=== PATIENT | female | born 1945 | race Caucasian/White ===

== ENCOUNTER 2018-01-02 10:37 | Observation (INO) ==
--- NOTE | 2018-01-02 12:40 | Emergency Department Note ---
Disposition Clinical Impression: Chest pain Qualifiers: Chest pain type: other chest pain Qualified Code(s): R07.89 - Other chest pain Disposition: Admitted As Inpatient Condition: Good Time of Disposition: 12:45 Chest Pain HPI - General Chief Complaint: ED Chest Pain Stated Complaint: Chest pains Time Seen by Provider: 01/02/18 12:36 Vital Signs Reviewed: Yes - History of Present Illness HPI Narrative: 72yo female presents from home for evaluation of chest pain. Onset 3 days ago. Constant. Described as a shifting dullness. Associated with dyspnea with exertion. No nausea, vomiting, weakness, back pain. She was seen and evaluated by her PCP yesterday; unremarkable EKG and cardiac enzymes per patient. She has a history of chronic sinusitus PMH: HTN. No hx HLD, COPD, CAD. Never smoked cigarettes. No family history of ACS. ROS: Pos: as above Neg: fever, chills, cough, nausea, vomiting, palpitations, back pain, numbness, weakness, tingling, headache Severity scale (1-10): 8 - Related Data Home Medications Medication Instructions Recorded Confirmed Fluticasone Propionate Nasal 1 spr NS DAILY PRN 01/02/18 01/02/18 [Flonase] Guaifenesin [Mucinex] 600 mg PO DAILY PRN 01/02/18 01/02/18 Loratadine [Allergy Relief] 10 mg PO DAILY 01/02/18 01/02/18 Multivitamin [One Daily Essential] 1 tab PO DAILY 01/02/18 01/02/18 Omeprazole [PriLOSEC] 20 mg PO DAILY 01/02/18 01/02/18 Potassium Chloride [Klor-Con 10] 20 meq PO DAILY 01/02/18 01/02/18 Quinapril HCl [Accupril] 20 mg PO DAILY 01/02/18 01/02/18 Verapamil HCl [Verapamil ER] 240 mg PO DAILY 01/02/18 01/02/18 hydroCHLOROthiazide 25 mg PO DAILY 01/02/18 01/02/18 [Hydrochlorothiazide] Allergies Allergy/AdvReac Type Severity Reaction Status Date / Time iron [From Venofer] Allergy See Verified 01/02/18 13:27 Comments All systems ED: reviewed and negative except as stated. Review of Systems: As Per HPI Physical Exam Vital Signs Reviewed General: Patient is alert, oriented, and in no acute distress. Appears younger than stated age. Head: atraumatic, normocephalic Eye: normal appearance, PERRL, EOMI, no scleral icterus, no conjunctival injection ENT: mucous membranes moist, normal external ear exam. TMs bilaterally pearly white with no injection, buldge, retraction. Turbinates bilaterally erythematous and swollen. Neck: normal inspection, trachea midline, full ROM Chest: normal inspection, symmetric chest rise Respiratory: Good respiratory effort. Bilateral breath sounds are clear without wheezing, crackles, or rhonchi. Cardiovascular: Regular rate and rhythm. No clicks, rubs, gallops, or murmors. Normal heart sounds. Abdomen: Bowel sounds present normoactive x-4 quadrants. Abdomen is soft, nondistended, and nontender. No guarding or rebound. No organomegaly noted. Musculoskeletal: Spontaneously moving all extremities. Skin: warm, dry, intact. Neuro: Alert and oriented x4. Sensation light touch intact. Psych: Patient's affect is appropriate for situation. Course Course Narrative: EKG dated 02 Jan 2018 at 12:36 interpreted as sinus rhythm with rate of 80. NJ 195. QTc 425. Normal axis. Non specific STT changes. No previous EKG for comparison. Chest pain workup. Anticipate admission. Serum hematology unremarkable. Serum chemistry unremarkable; specifically normal troponin. Patient is agreeable for admission for continued evaluation and management. Discussed the patient with the admitting hospitalist who agrees to accept the patient for continued evaluation of chest pain to rule out ACS. Chest X-Ray 01/02/18 11:03 IMPRESSION: 1. Minimal left basilar atelectasis. 2. Moderate to large hiatal hernia. D/ / Von Aiken MD / Von Aiken MD Interpreting Provider: Von Aiken MD Vital Signs Temperature 97.9 F 01/02/18 11:00 Pulse Rate 83 01/02/18 11:00 Respiratory Rate 18 01/02/18 11:00 Blood Pressure 127/82 01/02/18 11:00 O2 Sat by Pulse Oximetry 95 01/02/18 11:00 Temperature 98.5 F 01/02/18 18:23 Pulse Rate 67 01/02/18 18:23 Respiratory Rate 16 01/02/18 18:23 Blood Pressure 114/70 01/02/18 18:23 O2 Sat by Pulse Oximetry 97 01/02/18 18:23 Oxygen Delivery Oxygen Delivery Nasal Cannula Chest Pain - Lab Data Result diagrams: 01/02/18 12:57 01/02/18 12:57 Lab Results 01/02/18 01/02/18 Range/Units 12:57 12:57 WBC 12.1 H (4.3-11.1) K/mcL RBC 4.31 (3.82-4.97) M/mcL Hgb 12.1 (11.5-15.4) g/dL Hct 37.1 (35.3-44.9) % MCV 86.1 (83.0-100.0) fL MCH 28.1 (28.0-33.3) pg MCHC 32.6 (31.6-35.5) g/dL RDW 15.1 H (11.5-14.5) % Plt Count 347 (140-400) K/mcL MPV 9.7 (9.4-12.4) fL Immature Gran % 0.4 (0-4) % Seg Neutrophils % 79.8 % Lymphocytes % 12.1 % Monocytes % 6.5 % Eosinophils % 0.6 % Basophils % 0.6 % Neutrophils # 9.7 H (1.6-8.9) K/mcL Lymphocytes # 1.5 (0.6-4.6) K/mcL Monocytes # 0.8 (0.0-1.3) K/mcL Eosinophils # 0.1 (0.0-0.6) K/mcL Basophils # 0.1 (0.0-0.2) K/mcL Sodium 134 L (136-145) mEq/L Potassium 3.4 L (3.5-5.1) mEq/L Chloride 97 L (98-107) mEq/L Carbon Dioxide 27 (23-29) mEq/L BUN 15 (8-23) mg/dL Creatinine 0.78 (0.60-1.20) mg/dL Est GFR ( Amer) > 60 (> 60) Est GFR (Non-Af Amer) > 60 (> 60) BUN/Creatinine Ratio 19 (6-26) Glucose 129 H (70-105) mg/dL Calculated Osmolality 281 (280-300) Calcium 9.6 (8.6-10.3) mg/dL Troponin I < 0.03 (< 0.04) ng/mL Heart Score - Score History: Slightly Suspicious EKG: Non Specific repolarisation Disturbance Age: Greater than 65 Risk Factors: 1-2 risk factors Troponin: Less than normal limit HEART Score Total: 4 Attestation Statement - Attestation Attestation: I examined this patient and my medical decision-making was reviewed with the Resident Physician. I agree with the documented findings, disposition and treatment plan as described except to the extent set forth below. Findings consistent with chest pain. Symptoms of been ongoing and atypical in nature. Patient has risk factors. We would proceed with admission for ACS rule out and further management possibly cardiac consultation.
[2018-01-02 13:12] LABS: Basophils # 0.1 K/mcL (0.0-0.2); Basophils % 0.6 %; Eosinophils # 0.1 K/mcL (0.0-0.6); Eosinophils % 0.6 %; Hematocrit 37.1 % (35.3-44.9); Hemoglobin 12.1 g/dL (11.5-15.4); Immature Granulocytes % 0.4 % (0-4); Lymphocytes # 1.5 K/mcL (0.6-4.6); Lymphocytes % 12.1 %; Mean Corpuscular HGB Conc 32.6 g/dL (31.6-35.5); Mean Corpuscular Hemoglobin 28.1 pg (28.0-33.3); Mean Corpuscular Volume 86.1 fL (83.0-100.0); Mean Platelet Volume 9.7 fL (9.4-12.4); Monocytes # 0.8 K/mcL (0.0-1.3); Monocytes % 6.5 %; Neutrophils # 9.7 K/mcL (1.6-8.9); Platelet Count 347 K/mcL (140-400); Red Blood Count 4.31 M/mcL (3.82-4.97); Red Cell Distribution Width 15.1 % (11.5-14.5); Segmented Neutrophils % 79.8 %
[2018-01-02] MEDS ORDERED: *HR* HYDROcodone/Acet 5/325 mg TABLET PO PRN (13:32)
[2018-01-02] MEDS ORDERED: Naloxone 0.4 MG/ML INJ IVP PRN (13:32)
[2018-01-02] MEDS ORDERED: Acetaminophen 325 MG TABLET PO PRN (13:32)
[2018-01-02] MEDS ORDERED: Nitroglycerin 0.4 MG TAB.SUBL SL PRN (13:35)
[2018-01-02] MEDS ORDERED: Fluticasone Propionate Nasal 50 MCG/SPRAY BOTTLE NS PRN (13:36)
[2018-01-02 13:37] LABS: Troponin I < 0.03 ng/mL (< 0.04)
[2018-01-02 13:42] LABS: BUN/Creatinine Ratio 19 (6-26); Blood Urea Nitrogen 15 mg/dL (8-23); Calcium 9.6 mg/dL (8.6-10.3); Carbon Dioxide 27 mEq/L (23-29); Chloride 97 mEq/L (98-107); Glucose 129 mg/dL (70-105); Osmolality,Calculated 281 (280-300); Potassium 3.4 mEq/L (3.5-5.1); Sodium 134 mEq/L (136-145); eGFR For Non-African Americans > 60 (> 60)
--- NOTE | 2018-01-02 13:46 | Internal Med History&Physical ---
<OlgaJonathan - Last Filed: 01/02/18 14:04> Date of Encounter: 01/02/18 Time of Encounter: 12:30 Internal Medicine - H&P: HPI Chief complaint: CP Admitted From: Emergency Dept Plans for Post Hospital Care: Home History of present illness: Ms. Silva is a 72 year old female w/PMH of HTN, GERD, and hiatal hernia presents from the ED w/CC of CP that began Sunday at 5 a.m. when the pt. was getting up. Pt. reports pain in the right neck and right arm. States pain worsened by Sunday as centralized chest pressure in chest that was constant w/ radiation to both sides of the neck, right arm, and back accompanied by SOB. Alleviating factors: rest and aspirin. Pt. denies cardiac hx or previous cardiac w/u. Pt. denies recent illness, fever, chills, nausea, vomiting, changes in vision, headache, unusual bleeding, abdominal pain, diarrhea, constipation, dizziness, lightheadedness, numbness, tingling, pre-syncope, or syncope. Past Med Surg Social Fam HX - Past Medical History Source: patient, old records reviewed, obtained from family Medical history: GERD, hypertension, other (Hiatal hernia) - Social History Smoking Status: Never smoker Alcohol use: rarely Drug use: none Current living situation: Home, With Family Activity Level: Independent ambulation Recent Out of Country Travel Within the Last 8 Weeks: No Exposure or Possible Exposure to Illness During Travel: No - Family History Father Race: Family Member Ethnicity: Non- Living Status: Age at : 50 Cause of : Lung cancer Hx Family Cancer: Yes (Lung) Mother Race: Family Member Ethnicity: Non- Living Status: Age at : 85 Cause of : Dementia Hx Family Cardiac Disorders: Yes (HTN) Hx Family Endocrine Disorder: Yes (DM) Hx Family Neurologic Disorders: Yes (Dementia) Brother Race: Family Member Ethnicity: Non- Living Status: Age at : 64 Cause of : COPD/Emphysema Hx Family Respiratory Disorders: Yes (COPD/Emphysema) Internal Medicine - H&P: Meds Fluticasone Propionate Nasal [Flonase] 1 spr NS DAILY PRN 01/02/18 [History] Guaifenesin [Mucinex] 600 mg PO DAILY PRN 01/02/18 [History] Loratadine [Allergy Relief] 10 mg PO DAILY 01/02/18 [History] Multivitamin [One Daily Essential] 1 tab PO DAILY 01/02/18 [History] Omeprazole [PriLOSEC] 20 mg PO DAILY 01/02/18 [History] Potassium Chloride [Klor-Con 10] 20 meq PO DAILY 01/02/18 [History] Quinapril HCl [Accupril] 20 mg PO DAILY 01/02/18 [History] Verapamil HCl [Verapamil ER] 240 mg PO DAILY 01/02/18 [History] hydroCHLOROthiazide [Hydrochlorothiazide] 25 mg PO DAILY 01/02/18 [History] 3 Allergy/AdvReac Type Severity Reaction Status Date / Time iron [From Venofer] Allergy See Verified 01/02/18 13:27 Comments All Systems PM: A 10-system review of systems was performed and is negative for pertinent findings except as documented above in the HPI. - Constitutional Constitutional: no chills, no fever(s), no night sweats - EENT Eyes: no change in vision, no discharge, no pain, no photophobia Ears: no ear discharge, no ear pain, no tinnitus Nose, mouth and throat: no dysphagia, no nasal discharge, no neck pain, no sore throat - Breasts Breasts: as per HPI - Cardiovascular Cardiovascular ROS IM: as per HPI, chest pain, dyspnea, dyspnea on exertion, no diaphoresis, no lightheadedness, no palpitations, no syncope - Respiratory Respiratory: as per HPI, dyspnea, dyspnea on exertion - Gastrointestinal Gastrointestinal: no abdominal pain, no diarrhea, no hematemesis, no hematochezia, no melena, no nausea, no vomiting - Genitourinary Genitourinary: no change in urinary stream, no dysuria, no flank pain, no hematuria Menstruation: as per HPI - Musculoskeletal Musculoskeletal ROS IM: as per HPI - Integumentary Integumentary IM: no rash, no unusual bruising - Neurological Neurological ROS: no confusion, no convulsions, no focal weakness, no numbness, no tingling, no tremor(s) - Psychiatric Psychiatric: as per HPI - Endocrine Endocrine IM: as per HPI - Hematologic/Lymphatic Hematologic/Lymphatic: no easy bruising - Allergic/Immunologic Allergic/Immunologic: as per HPI - Constitutional Vitals: Temp Pulse Resp BP Pulse Ox 98.1 F 69 16 118/59 98 01/02/18 12:27 01/02/18 13:08 01/02/18 13:08 01/02/18 13:08 01/02/18 13:08 General appearance: Present: cooperative, mild distress (CP), A&O X 3, pleasant , obese, answers questions appropriately Exam: Pt. examined at bedside in ED. Pt. states she continues to have chest pressure in centralized chest (rated 8/10) accompanied by SOB. Denies previous hx. Radiation to bilateral neck, right arm, and back. Denies N/V/diaphoresis. Denies previous AL, cardiac hx, or recent cardiac w/u. States she takes aspirin daily. Denies any other sx at this time. On exam, HR RRR, RR 16, pt. resting comfortably. - Head Head exam: Present: atraumatic, normocephalic - Eye Eye exam: Present: PERRL, conjuntiva pink, sclera anicteric Pupils: Present: PERRL - ENT ENT exam: Present: normal exam - Neck Neck exam general surgery: Present: normal inspection, supple, trachea midline. Absent: lymphadenopathy - Respiratory Respiratory exam: Present: CTAB. Absent: accessory muscle use, rales, rhonchi, wheezes - Cardiovascular Cardiovascular exam: Present: RRR, +S1, +S2. Absent: diastolic murmur, gallop, rubs, systolic murmur - GI/Abdominal GI/Abdominal exam: Present: normal bowel sounds, soft, no peritoneal signs. Absent: distended, tenderness - Rectal Rectal exam: Present: deferred - Additional comments: exam deferred. - Extremities Exam Extremities exam: Present: warm, radial pulses palpable and symmetrical. Absent : calf tenderness, cyanotic, pedal edema - Back Exam Back exam: Present: normal inspection - Neurological Exam Neurological exam: Present: alert, CN II-XII intact, oriented X3, no focal deficits. Absent: pronater drift, facial droop, speech deficit - Psychiatric Psychiatric exam: Present: normal affect, normal mood - Skin Skin exam: Present: dry, intact Internal Med - H&P Results - Labs CBC & Chem 7: 01/02/18 12:57 01/02/18 12:57 Labs: Short CBC 01/02/18 Range/Units 12:57 WBC 12.1 H (4.3-11.1) K/mcL Hgb 12.1 (11.5-15.4) g/dL Hct 37.1 (35.3-44.9) % Plt Count 347 (140-400) K/mcL Neutrophils # 9.7 H (1.6-8.9) K/mcL Cardiac Enzymes 01/02/18 Range/Units 12:57 Troponin I < 0.03 (< 0.04) ng/mL - Impressions ITS Impressions Chest X-Ray 01/02/18 11:03 IMPRESSION: 1. Minimal left basilar atelectasis. 2. Moderate to large hiatal hernia. D/ / Von Aiken MD / Von Aiken MD Interpreting Provider: Von Aiken MD - Diagnostic Studies Chest x-ray Additional comments: Impressions Chest X-Ray 01/02/18 11:03 IMPRESSION: 1. Minimal left basilar atelectasis. 2. Moderate to large hiatal hernia. D/ / Von Aiken MD / Von Aiken MD Interpreting Provider: Von Aiken MD - Assessment and plan (1) Chest pain Current Visit: Yes Status: Acute Assessment and plan: Acute CP that began Sunday at 5 a.m. when the pt. was getting up. Pt. reports pain in the right neck and right arm. States pain worsened by Sunday as centralized chest pressure in chest that was constant w/radiation to both sides of the neck, right arm, and back accompanied by SOB. Alleviating factors: rest and aspirin. Pt. denies cardiac hx or previous cardiac w/u. Echocardiogram ordered. Initial troponin <0.03. Will trend. Cardiac diet. NPO @ midnight for a.m. exercise stress test if troponins remain WNL. Aspirin. 80 mg Lipitor ONCE. SL Nitro PRN. Consider Cardiology consult if pts. Echocardiogram, troponins, and /or stress test results abnormal. Pt. discussed w/Dr. Berry who agrees w/ plan of care. Pt. is moderate risk for further morbidity and cardiac event based on new onset of CP that has worsened since Sunday, radiation of CP, hx; and risk factors of obesity and HTN. Observation. Qualifiers: Chest pain type: other chest pain Qualified Code(s): R07.89 - Other chest pain; R07.8 - Other chest pain (2) SOB (shortness of breath) Current Visit: Yes Status: Acute Assessment and plan: Acute SOB accompanying CP sx. Pt. denies home O2 use. Reports seasonal allergies. Will continue pts. Flonase, Mucinex, and Loratadine. Supplemental O2 w/titration and SpO2 monitoring PRN. (3) HTN (hypertension) Current Visit: Yes Status: Chronic Assessment and plan: Hx of chronic HTN. Monitor pt. and VS. Continue pts. Hydrochlorothiazide, Accupril, and Verapamil. Qualifiers: Hypertension type: essential hypertension Qualified Code(s): I10 - Essential (primary) hypertension (4) GERD (gastroesophageal reflux disease) Current Visit: Yes Status: Chronic Assessment and plan: Hx of chronic GERD. IVP Protonix 40 mg ONCE. Continue pts. PO Prilosec tomorrow. Qualifiers: Esophagitis presence: esophagitis presence not specified Qualified Code(s) : K21.9 - Gastro-esophageal reflux disease without esophagitis (5) DVT prophylaxis Current Visit: Yes Status: Acute Assessment and plan: Heparin 5,000 units SQ Q8HR for DVT prophylaxis. Monitor pt. for signs of bleeding. - Time Spent With Patient Total time spent is greater than 50% in coordination of care (as documented) at patient's floor/unit and/or counseling patient: Greater than 35 minutes <Devin Berry - Last Filed: 01/02/18 15:02> Date of Encounter: 01/02/18 Time of Encounter: 13:30 - Constitutional Vitals: Temp Pulse Resp BP Pulse Ox 98.1 F 67 16 137/78 96 01/02/18 12:27 01/02/18 14:21 01/02/18 14:21 01/02/18 14:21 01/02/18 14:21 General appearance: Present: cooperative, A&O X 3, pleasant, answers questions appropriately - Eye Eye exam: Present: EOMI, PERRL - ENT ENT exam: Present: normal exam - Neck Neck exam general surgery: Present: full ROM, supple. Absent: tenderness, nuchal rigidity, thyromegaly - Respiratory Respiratory exam: Present: CTAB. Absent: rales, rhonchi - Cardiovascular Cardiovascular exam: Present: RRR, +S1, +S2. Absent: diastolic murmur, systolic murmur - Extremities Exam Extremities exam: Present: warm, radial pulses palpable and symmetrical. Absent : calf tenderness, cyanotic, tenderness - Back Exam Back exam: Absent: CVA tenderness (L), CVA tenderness (R) Internal Med - H&P Results - Labs CBC & Chem 7: 01/02/18 12:57 01/02/18 12:57 Labs: Short CBC 01/02/18 Range/Units 12:57 WBC 12.1 H (4.3-11.1) K/mcL Hgb 12.1 (11.5-15.4) g/dL Hct 37.1 (35.3-44.9) % Plt Count 347 (140-400) K/mcL Neutrophils # 9.7 H (1.6-8.9) K/mcL BMP 01/02/18 12:57 Sodium 134 L Potassium 3.4 L Chloride 97 L Carbon Dioxide 27 BUN 15 Creatinine 0.78 Glucose 129 H Calcium 9.6 Cardiac Enzymes 01/02/18 Range/Units 12:57 Troponin I < 0.03 (< 0.04) ng/mL - Impressions ITS Impressions Chest X-Ray 01/02/18 11:03 IMPRESSION: 1. Minimal left basilar atelectasis. 2. Moderate to large hiatal hernia. D/ / Von Aiken MD / Von Aiken MD Interpreting Provider: Von Aiken MD - Assessment and plan (1) Chest pain Current Visit: Yes Status: Acute Qualifiers: Chest pain type: other chest pain Qualified Code(s): R07.89 - Other chest pain; R07.8 - Other chest pain (2) SOB (shortness of breath) Current Visit: Yes Status: Acute (3) HTN (hypertension) Current Visit: Yes Status: Chronic Qualifiers: Hypertension type: essential hypertension Qualified Code(s): I10 - Essential (primary) hypertension (4) GERD (gastroesophageal reflux disease) Current Visit: Yes Status: Chronic Qualifiers: Esophagitis presence: esophagitis presence not specified Qualified Code(s) : K21.9 - Gastro-esophageal reflux disease without esophagitis (5) DVT prophylaxis Current Visit: Yes Status: Acute - Time Spent With Patient Total time spent is greater than 50% in coordination of care (as documented) at patient's floor/unit and/or counseling patient: - Attending Attestation I discussed the patient LAC VIEUX, past medical history, review of systems, lab data , and exam findings with Karthik Espinoza CNP. I then saw and examined patient independently. Patient presents with chest pain somewhat concerning for angina despite no prior history of cardiac disease. Nonetheless, she warrants evaluation and testing as detailed above. I reviewed the x-ray and EKG and lab findings. Other than my comments above and noted physical exam findings, I agree with Karthik's assessment and plan.
[2018-01-02] MEDS ORDERED: Ondansetron 4 MG/2 ML VIAL IVP PRN (13:51)
[2018-01-02] MEDS ORDERED: Pantoprazole 40 MG VIAL IVP ONE (13:53)
[2018-01-02] MEDS: *HR* Heparin 5,000 UNIT/ML VIAL SQ SCH ×2 (16:15→22:30)
[2018-01-03 04:02] LABS: Basophils # 0.1 K/mcL (0.0-0.2); Basophils % 0.7 %; Eosinophils # 0.1 K/mcL (0.0-0.6); Eosinophils % 1.1 %; Hematocrit 33.9 % (35.3-44.9); Hemoglobin 11.2 g/dL (11.5-15.4); Immature Granulocytes % 0.4 % (0-4); Lymphocytes # 2.3 K/mcL (0.6-4.6); Lymphocytes % 24.6 %; Mean Corpuscular Hemoglobin 28.9 pg (28.0-33.3); Mean Corpuscular Volume 87.6 fL (83.0-100.0); Mean Platelet Volume 10.1 fL (9.4-12.4); Monocytes # 0.7 K/mcL (0.0-1.3); Monocytes % 7.7 %; Platelet Count 308 K/mcL (140-400); Red Blood Count 3.87 M/mcL (3.82-4.97); Red Cell Distribution Width 15.2 % (11.5-14.5); Segmented Neutrophils % 65.5 %
[2018-01-03 04:18] LABS: Alanine Aminotransferase 12 Units/L (7-52); Albumin 3.7 g/dL (3.5-5.7); Albumin/Globulin Ratio 1.2 (1.1-2.2); Alkaline Phosphatase 115 Units/L (34-104); Aspartate Amino Transferase 17 Units/L (13-39); BUN/Creatinine Ratio 19 (6-26); Bilirubin,Total 0.6 mg/dL (0.3-1.0); Blood Urea Nitrogen 12 mg/dL (8-23); Calcium 9.2 mg/dL (8.6-10.3); Carbon Dioxide 29 mEq/L (23-29); Chloride 97 mEq/L (98-107); Chol/HDL Ratio 2.4 (0-4.9); Cholesterol 133 mg/dL (< 200); Globulin 3.1 g/dL (2.4-3.5); Glucose 126 mg/dL (70-105); HDL Cholesterol 56 mg/dL (40-59); LDL Cholesterol,Calculated 54 mg/dL (0-99); Magnesium 1.9 mg/dL (1.6-2.6); Osmolality,Calculated 277 (280-300); Potassium 3.8 mEq/L (3.5-5.1); Sodium 133 mEq/L (136-145); Total Protein 6.8 g/dL (6.4-8.9); Triglycerides 113 mg/dL (< 150); eGFR For Non-African Americans > 60 (> 60)
[2018-01-03] MEDS: *HR* Heparin 5,000 UNIT/ML VIAL SQ SCH ×2 (05:57→12:49)
[2018-01-03 07:37] LABS: Estimated Average Glucose 126 mg/dl
[2018-01-03] MEDS ORDERED: Regadenoson 0.4 MG/5 ML SYRINGE IVP ONE (07:53)
[2018-01-03] MEDS ORDERED: Aspirin Enteric Coated 81 MG Tablet PO SCH (09:00)
[2018-01-03] MEDS ORDERED: hydroCHLOROthiazide 25 MG TABLET PO SCH (09:00)
[2018-01-03] MEDS ORDERED: Multivit/Ca/Min/Fe/FA 1 TAB TABLET PO SCH (09:00)
[2018-01-03] MEDS ORDERED: Loratadine 10 MG TABLET PO SCH (09:00)
[2018-01-03] MEDS ORDERED: Lisinopril 20 MG TABLET PO SCH (09:00)
[2018-01-03] MEDS ORDERED: Verapamil ER (24 HR) 240 MG TABLET.ER PO SCH (09:00)
[2018-01-03 15:35] VITALS: BP 102/63
--- NOTE | 2018-01-03 15:38 | Discharge Summary ---
- NOTES TO OUTPATIENT PROVIDER Notes to Outpatient Provider: She will follow up with primary care provider Orders not resulted at time of discharge: Pending orders 01/03/18 07:48 NM jeremie perf SPECT multi [NM] Routine Date of Encounter: 01/03/18 Time of Encounter: 11:00 - Discharge Diagnosis (1) Chest pain Priority: Primary Status: Acute Qualifiers: Chest pain type: other chest pain Qualified Code(s): R07.89 - Other chest pain; R07.8 - Other chest pain (2) SOB (shortness of breath) Priority: Secondary Status: Acute (3) HTN (hypertension) Priority: Secondary Status: Chronic Qualifiers: Hypertension type: essential hypertension Qualified Code(s): I10 - Essential (primary) hypertension (4) GERD (gastroesophageal reflux disease) Priority: Secondary Status: Chronic Qualifiers: Esophagitis presence: esophagitis presence not specified Qualified Code(s) : K21.9 - Gastro-esophageal reflux disease without esophagitis Hospital course: Patient is a 72-year-old female with past medical history significant for hypertension and GERD who presented due to chest pain. During patients hospital stay her cardiac biomarkers were negative and nuclear medicine stress was done which was negative for ischemia and without ischemia or infarct on perfusion imaging. Echocardiogram showed LVEF of 60-65% with mild left ventricular diastolic dysfunction and mild aortic sclerosis. Patient will follow-up with primary care provider as an outpatient. - Time Spent with Patient Total time spent providing and/or coordinating discharge services: Greater than 30 minutes - Discharge Medications Home Medications: Fluticasone Propionate Nasal [Flonase] 1 spr NS DAILY PRN 01/02/18 [History] Guaifenesin [Mucinex] 600 mg PO DAILY PRN 01/02/18 [History] Loratadine [Allergy Relief] 10 mg PO DAILY 01/02/18 [History] Multivitamin [One Daily Essential] 1 tab PO DAILY 01/02/18 [History] Omeprazole [PriLOSEC] 20 mg PO DAILY 01/02/18 [History] Potassium Chloride [Klor-Con 10] 20 meq PO DAILY 01/02/18 [History] Quinapril HCl [Accupril] 20 mg PO DAILY 01/02/18 [History] Verapamil HCl [Verapamil ER] 240 mg PO DAILY 01/02/18 [History] hydroCHLOROthiazide [Hydrochlorothiazide] 25 mg PO DAILY 01/02/18 [History] Allergies/Adverse Reactions: 3 Allergy/AdvReac Type Severity Reaction Status Date / Time iron [From Venofer] Allergy See Verified 01/02/18 13:27 Comments Date of admission: 01/02/18 15:15 Primary care physician: Murtaza Johnson MD - Constitutional Vitals: Temp Pulse Resp BP Pulse Ox 99.1 F 83 17 102/63 93 01/03/18 15:31 01/03/18 15:31 01/03/18 15:31 01/03/18 15:31 01/03/18 15:31 General appearance: Present: cooperative, A&O X 3, pleasant, answers questions appropriately Exam: See below - Cardiovascular Cardiovascular exam: Present: RRR, +S1, +S2. Absent: diastolic murmur, gallop, rubs, systolic murmur - Patient Status Disposition: Home, Self-Care Condition: Good - Discharge Instructions Instructions: Chest Pain (DC) Follow Up With: Katherine Johnson SEAWEED HARVESTER [Advanced Practice Nurse] - 01/09/18 1:00 pm Additional Instructions: Follow-up appointments: If there is not an appointment listed below, please call your physician and schedule a follow-up appointment. If you have congestive heart failure and your symptoms return, make an appointment with your physician. Medication List: Carry an up to date list of medications you are taking at all time. We have given you an updated medication list including any new medications that you have been prescribed. Please provide that list to your primary provider Symptoms: If your condition changes or you experience any of the following symptoms, notify your physician immediately: Unusual or worsening pain, fever, persistent nausea and vomiting, bleeding, increase in swelling (especially in your legs), sudden weight gain, extreme dizziness, chest pain, increased drainage or redness from a wound or incision. Go to the emergency department if you experience a problem with breathing. Weights: If you have a history of swelling or shortness of breath, weigh yourself daily and notify your physician if you have a weight gain of two or more pounds in one day or 5 or more pounds in a week. If you experience any of the warning signs for stroke: Sudden numbness or weakness of the face, arm or leg; especially on one side of the body, sudden confusion, trouble speaking or understanding, sudden trouble seeing in one or both eyes, sudden trouble walking, dizziness, loss of balance or coordination, sudden sever headache with no cause; Call 911 or go to the emergency room. Stroke is a medical emergency. Some risk factors for stroke: Age, cigarette smoking, diabetes, excessive alcohol consumption, family history , high blood pressure, overweight, physical inactivity, prior stroke, heart attack, diagnosis of carotid artery stenosis or other artery disease. If you smoke, STOP: Smoking or tobacco use significantly increases your risk of heart and lung disease. Your chance of disease greatly increases if you continue to smoke. For more information, call the [place] tobacco quit line for smoking cessation QUIT-NOW ( )
--- NOTE | 2018-01-07 13:50 | Electrocardiograph Report ---
[place] [id number] Test Date: 2018-01-02 Pat Name: Audrey Silva Department: 106 Room: 3B13 Gender: F Winterizer: [id number] : 1945 Requested By: Von Hummel Order Number: [id number] Reading MD: Bandar Francis Measurements Intervals [place] Rate: 80 P: 67 ND: 195 QRS: -7 QRSD: 88 T: 13 QT: 388 QTc: 425 Interpretive Statements SINUS RHYTHM WITH OCCASIONAL SUPRAVENTRICULAR PREMATURE COMPLEXES VOLTAGE CRITERIA FOR LVH Electronically Signed On 01-07-2018 13:48:05 EDT by Bandar Francis
--- NOTE | 2018-01-07 14:27 | Electrocardiograph Report ---
[address] [place], [place] [address] Test Date: 2018-01-02 Pat Name: Audrey Silva Department: 103 Room: 3B13 Gender: F [employer]: : 1945 Requested By: Nito Armstrong Order Number: [id number] Reading MD: Bandar Francis Measurements Intervals [place] Rate: 89 P: [place]: 0 QRS: 191 QRSD: 90 T: 172 QT: 353 QTc: 400 Interpretive Statements Sinus rhythm with PACs Lateral T wave changes, consider ischemia Electronically Signed On 01-07-2018 14:25:51 EDT by Bandar Francis
== END 2018-01-03 16:47 | disposition home or self-care (01) ==
LOC: 3BNU 10:37 → EMEROOARM 10:37 → SUATTDRO 15:15 → 3BNU 15:50
PROVIDERS: ADMIT Student in an Organized Health Care Education/Training Program; ATTEND Hospitalist